=== PATIENT | female | born 1980 | race Caucasian/White ===

== ENCOUNTER 2023-10-09 19:20 | Emergency (ER) | payer SELFPAY ==
[2023-10-09] MEDS ORDERED: Gabapentin 300 MG CAP ONE (20:08)
== END 2023-10-09 20:22 | disposition home or self-care (01) ==
LOC: NAV ERS 19:20
DX: G25.81 Restless legs syndrome (principal); G47.00 Insomnia, unspecified; Z87.891 Personal history of nicotine dependence
CPT/HCPCS: 99283